=== PATIENT | female | born 2005 | race Caucasian/White ===

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

== ENCOUNTER 2024-01-10 17:22 | Emergency (ER) | payer BC, MEDICAID, SELFPAY ==
[2024-01-10 17:34] VITALS: BP 104/68; PULSE 103; RESP 14; TEMP 36.7; O2SAT 98
--- NOTE | 2024-01-10 17:45 | ECG_ITS ---
[facility] Test Date: 2024-01-10 Pat Name: Thuy Bashir Department: Room: Gender: Female Mud Analysis Supervisor: : 2005 Requested By: Keny Knight Order Number: [id number] Amy MD: Stephanie Fisher M.D. Measurements Intervals [place] Rate: 88 P: 58 [place]: 157 QRS: 76 QRSD: 86 T: 50 QT: 369 QTc: 447 Interpretive Statements SINUS RHYTHM WITH SINUS ARRHYTHMIA MINIMAL ST DEPRESSION [0.025+ mV ST DEPRESSION] Compared to ECG 07/11/2023 01:31:15 ST (T wave) deviation now present Electronically Signed On 01-11-2024 0:58:54 CDT by Stephanie Fisher M.D. [email or web address]
--- NOTE | 2024-01-10 17:49 | ED_ITS ---
Documented by User: Keny Burger DO 01/10/24 18:05 HPI - Dizziness 2 General: Chief Complaint: Dizziness Stated Complaint: dizzy,blacks out Time Seen by Provider: 01/10/24 17:44 History of Present Illness: HPI Narrative: 17-year-old female presents to the [facility] ency room with complaints of near syncopal episodes. Usually associated with postural changes. She also complains some vague chest and abdominal pain she denies any dysuria urgency or frequency denies any diarrhea. She has problems urinary continence associated with her previous pregnancies. States that she will get lightheaded and dizzy when she first stands she will sometimes get some blurring of her vision gets better after a few seconds but the dizziness will persist especially if she walks for a time afterwards. Patient reports this is going on for several months. She has been seen for it previously with no significant findings. Associated symptoms: Denies chest pain or chills Review of Systems 2 Const: Denies: fever(s) or chills Card: Denies: chest pain Resp: Denies: dyspnea GI: Denies: abdominal pain : Denies: dysuria, urinary frequency or urinary urgency Musc: Denies: neck pain or back pain Skin/Breast: Denies: rash PFSH ED 2 PFSH: Medical History (Updated 01/10/24 @ 20:48 by Mukesh Marte DO) Urinary urgency Urinary incontinence in female Surgical History History of tonsillectomy (~2016) Family History Grandfather CAD (coronary artery disease) Maternal Grandfather Diabetes Maternal garndfather Hypertension Maternal Grandfather Denies family history of Hyperlipidemia Cancer Stroke Social History Smoking and tobacco/nicotine status: never used tobacco/nicotine Alcohol intake: never Substance/Drug Use: unknown Adopted: No Physical Exam 2 Const: COMMON NORMALS: no acute distress GENERAL APPEARANCE: cooperative and comfortable ORIENTATION/CONSCIOUSNESS: Yes awake, Yes oriented to person, Yes oriented to place and Yes oriented to time HENMT: COMMON NORMALS: normocephalic, atraumatic and hearing grossly normal bilaterally HEAD & SCALP: normocephalic and atraumatic Resp: COMMON NORMALS: normal respiratory effort, No retractions, No use of accessory muscles and clear to auscultation bilaterally AUSCULTATION: clear to auscultation bilaterally Cardio: COMMON NORMALS: regular rate, regular rhythm and No murmurs present (Cardio) RATE: regular rate RHYTHM: regular rhythm GI: COMMON NORMALS: Soft to palpation and No hepatosplenomegaly present A USCULTATION: Yes normoactive bowel sounds PALPATION: Yes Soft to palpation, No Tenderness to palpation present (GI), No Guarding due to palpation present (GI) and Yes No hepatosplenomegaly present Extremity: COMMON NORMALS: normal to inspection, capillary refill normal, no clubbing, cyanosis or edema, no calf tenderness and no pedal edema Neuro: SENSORIUM/ORIENTATION: Yes oriented to person, Yes oriented to place and Yes oriented to time Skin: COMMON NORMALS: no rashes or lesions noted GENERAL SKIN EXAM: no rashes or lesions noted Course 2 Vital Signs: Vital signs: Vital Signs Temperature 98.1 F 01/10/24 17:34 Pulse Rate 83 01/10/24 20:22 Respiratory Rate 14 01/10/24 17:34 Blood Pressure 128/76 01/10/24 20:22 Pulse Oximetry 99 01/10/24 20:22 Oxygen Delivery Me thod Room Air 01/10/24 18:49 MDM - Dizziness Medical Decision Making Care signed out to Dr. Marte at change of shift. See final notes for diagnosis and disposition. Lab Data 01/10/24 18:00 01/10/24 18:00 Laboratory Results WBC 5.73 10^3/uL (4.5-13.0) 01/10/24 18:00 RBC 4.80 10^6/uL (3.85-5.65) 01/10/24 18:00 Hgb 13.30 g/dL (12.4-14.8) 01/10/24 18:00 Hct 40.0 % (36-47) 01/10/24 18:00 MCV 83.3 fl (85-98) L 01/10/24 18:00 MCH 27.7 pg (27-33) 01/10/24 18:00 MCHC 33.3 g/dL (30-55) 01/10/24 18:00 RDW 12.4 % (12.1-15.1) 01/10/24 18:00 Plt Count 187 10^3/cmm (157-399) 01/10/24 18:00 MPV 10.2 fL (7.4-10.4) 01/10/24 18:00 Neut % (Auto) 64.6 % 01/10/24 18:00 Lymph % (Auto) 25.0 % 01/10/24 18:00 Emmons % (Auto) 6.5 % 01/10/24 18:00 Eos % (Auto) 2.8 % 01/10/24 18:00 Baso % (Auto) 0.9 % 01/10/24 18:00 Neut # (Auto) 3.71 10^3/uL (1.8-8.0) 01/10/24 18:00 Lymph # (Auto) 1.4 10^3/uL (1.5-6.5) L 01/10/24 18:00 Emmons # (Auto) 0.4 10^3/uL (0.2-0.9) 01/10/24 18:00 Eos # (Auto) 0.2 10^3/uL (0.0-0.8) 01/10/24 18:00 Baso # (Auto) 0.1 10^3/uL (0.0-0.1) 01/10/24 18:00 Nucleated RBC % (auto) 0 % 01/10/24 18:00 Nucleated RBCs # 0.0 /100WBC 01/10/24 18:00 Sodium 141 mmol/L (136-145) 01/10/24 18:00 Potassium 3.5 mmol/L (3.5-5.1) 01/10/24 18:00 Chloride 106 mmol/L (98-107) 01/10/24 18:00 Carbon Dioxide 24 mmol/L (22-29) 01/10/24 18:00 Anion Gap 14.5 (5-19) 01/10/24 18:00 BUN 12 mg/dL (6-20) 01/10/24 18:00 Creatinine 0.8 mg/dL (0.5-0.9) 01/10/24 18:00 GFR Calculation 92.4 mL/min (90-130) 01/10/24 18:00 Glucose 137 mg/dL (65-115) H 01/10/24 18:00 Calculated Osmolality 294 mOsm/kg (285-295) 01/10/24 18:00 Calcium 8.7 mg/dL (8.5-10.5) 01/10/24 18:00 Magnesium 2.0 mg/dL (1.7-2.2) 01/10/24 18:00 Total Bilirubin 0.6 mg/dL (0.15-1.2) 01/10/24 18:00 AST 13 U/L (0-32) 01/10/24 18:00 ALT 7 U/L (0-33) 01/10/24 18:00 Alkaline Phosphatase 57 U/L (35-105) 01/10/24 18:00 Creatine Kinase 85 U/L (26-192) 01/10/24 18:00 Total Protein 7.0 g/dL (6.6-8.7) 01/10/24 18:00 Albumin 4.4 g/dL (3.5-5.2) 01/10/24 18:00 Globulin 2.6 g/dL (1.3-4.6) 01/10/24 18:00 TSH 2.81 uIU/mL (0.27-4.20) 01/10/24 18:00 Urine Color Yellow (Yellow) 01/10/24 17:50 Urine Appearance Clear (CLEAR) 01/10/24 17:50 Urine pH 5 (5-7) 01/10/24 17:50 Ur Specific [place] 1.030 (1.005-1.030) 01/10/24 17:50 Urine Protein Trace (Negative) 01/10/24 17:50 Urine Glucose (UA) Norm (Normal) 01/10/24 17:50 Urine Ketones 3+ (Negative) H 01/10/24 17:50 Urine Blood Neg (Negative) 01/10/24 17:50 Urine Nitrate Negative (Negative) 01/10/24 17:50 Urine Bilirubin Neg (Negative) 01/10/24 17:50 Urine Urobilinogen 1 mg/dL (Negative) H 01/10/24 17:50 Ur Leukocyte Esterase Negative (Negative) 01/10/24 17:50 Urine RBC None /hpf (0-2) 01/10/24 17:50 Urine WBC 0-4 /hpf (0-5) H 01/10/24 17:50 Ur Squamous Epith Cells 5-10 /hpf (0-5) H 01/10/24 17:50 Amorphous Sediment Not Reportable 01/10/24 17:50 Urine Bacteria 1+ /hpf (NONE) H 01/10/24 17:50 Urine Mucus 3+ /hpf 01/10/24 17:50 XR interpretation done by ED provider, pending radiology final review Discharge Plan Discharge Patient Disposition: Home Clinical Impression: Syncope Qualifiers: Syncope type: unspecified Qualified Code(s): R55 - Syncope and collapse Condition: Stable Prescriptions: No Action ibuprofen 800 mg Tablet 800 mg PO TID Qty: 45 0RF -U 106.5-1 mg Capsule 1 cap PO BREAKFAST Qty: 90 2RF Discharge Orders: Discharge ED (Routine); Ordered 01/10/24 Ordered By: Mukesh Marte Patient Instructions: Syncope, Dizziness (ED) Activity Restrictions/Additional Instructions: Thank you for choosing [facility] for your healthcare needs today. Please realize that you were seen in the emergency department and that we are providing you with an emergency medical screening exam and this may not be a complete and all exclusive of all testing and/or medical workup we may need to determine your element or severity of your illness. It is very important that you follow-up as instructed with your primary care provider or specialist for the additional evaluation and to discuss your medical treatment plan. You may return to the emergency department should you have concerns or if your condition changes or worsens in any way. Coding Level of Care Code ED Gymnasium Teacher for Chg Fwd Documented by User: Mukesh Marte DO 01/10/24 20:53 HPI - Dizziness 2 General: Chief Complaint: Dizziness Stated Complaint: dizzy,blacks out Time Seen by Provider: 01/10/24 17:44 PFSH ED 2 PFSH: Medical History (Updated 01/10/24 @ 20:48 by Mukesh Marte DO) Urinary urgency Urinary incontinence in female Surgical History History of tonsillectomy (~2016) Family History Grandfather CAD (coronary artery disease) Maternal Grandfather Diabetes Maternal garndfather Hypertension Maternal Grandfather Denies family history of Hyperlipidemia Cancer Stroke Social History Smoking and tobacco/nicotine status: never used tobacco/nicotine Alcohol intake: never Substance/Drug Use: unknown Adopted: No Course 2 Vital Signs: Vital signs: Vital Signs Temperature 98.1 F 01/10/24 17:34 Pulse Rate 83 01/10/24 20:22 Respiratory Rate 14 01/10/24 17:34 Blood Pressure 128/76 01/10/24 20:22 Pulse Oximetry 99 01/10/24 20:22 Oxygen Delivery Me thod Room Air 01/10/24 18:49 MDM - Dizziness Medical Decision Making Care signed out to Dr. Marte at change of shift. See final notes for diagnosis and disposition. Care transferred over to myself at shift change, lab work was reviewed, discussed these results with the patient. We will bolus her another liter of fluid. Anticipate discharge when fluids done. Suggested patient follow back up with PCP to potentially get referred to a dietitian, psychologist, we had a long talk with mother about eating disorders and suggested that she get outpatient follow-up. Lab Data 01/10/24 18:00 01/10/24 18:00 Laboratory Results WBC 5.73 10^3/uL (4.5-13.0) 01/10/24 18:00 RBC 4.80 10^6/uL (3.85-5.65) 01/10/24 18:00 Hgb 13.30 g/dL (12.4-14.8) 01/10/24 18:00 Hct 40.0 % (36-47) 01/10/24 18:00 MCV 83.3 fl (85-98) L 01/10/24 18:00 MCH 27.7 pg (27-33) 01/10/24 18:00 MCHC 33.3 g/dL (30-55) 01/10/24 18:00 RDW 12.4 % (12.1-15.1) 01/10/24 18:00 Plt Count 187 10^3/cmm (157-399) 01/10/24 18:00 MPV 10.2 fL (7.4-10.4) 01/10/24 18:00 Neut % (Auto) 64.6 % 01/10/24 18:00 Lymph % (Auto) 25.0 % 01/10/24 18:00 Emmons % (Auto) 6.5 % 01/10/24 18:00 Eos % (Auto) 2.8 % 01/10/24 18:00 Baso % (Auto) 0.9 % 01/10/24 18:00 Neut # (Auto) 3.71 10^3/uL (1.8-8.0) 01/10/24 18:00 Lymph # (Auto) 1.4 10^3/uL (1.5-6.5) L 01/10/24 18:00 Emmons # (Auto) 0.4 10^3/uL (0.2-0.9) 01/10/24 18:00 Eos # (Auto) 0.2 10^3/uL (0.0-0.8) 01/10/24 18:00 Baso # (Auto) 0.1 10^3/uL (0.0-0.1) 01/10/24 18:00 Nucleated RBC % (auto) 0 % 01/10/24 18:00 Nucleated RBCs # 0.0 /100WBC 01/10/24 18:00 Sodium 141 mmol/L (136-145) 01/10/24 18:00 Potassium 3.5 mmol/L (3.5-5.1) 01/10/24 18:00 Chloride 106 mmol/L (98-107) 01/10/24 18:00 Carbon Dioxide 24 mmol/L (22-29) 01/10/24 18:00 Anion Gap 14.5 (5-19) 01/10/24 18:00 BUN 12 mg/dL (6-20) 01/10/24 18:00 Creatinine 0.8 mg/dL (0.5-0.9) 01/10/24 18:00 GFR Calculation 92.4 mL/min (90-130) 01/10/24 18:00 Glucose 137 mg/dL (65-115) H 01/10/24 18:00 Calculated Osmolality 294 mOsm/kg (285-295) 01/10/24 18:00 Calcium 8.7 mg/dL (8.5-10.5) 01/10/24 18:00 Magnesium 2.0 mg/dL (1.7-2.2) 01/10/24 18:00 Total Bilirubin 0.6 mg/dL (0.15-1.2) 01/10/24 18:00 AST 13 U/L (0-32) 01/10/24 18:00 ALT 7 U/L (0-33) 01/10/24 18:00 Alkaline Phosphatase 57 U/L (35-105) 01/10/24 18:00 Creatine Kinase 85 U/L (26-192) 01/10/24 18:00 Total Protein 7.0 g/dL (6.6-8.7) 01/10/24 18:00 Albumin 4.4 g/dL (3.5-5.2) 01/10/24 18:00 Globulin 2.6 g/dL (1.3-4.6) 01/10/24 18:00 TSH 2.81 uIU/mL (0.27-4.20) 01/10/24 18:00 Urine Color Yellow (Yellow) 01/10/24 17:50 Urine Appearance Clear (CLEAR) 01/10/24 17:50 Urine pH 5 (5-7) 01/10/24 17:50 Ur Specific [place] 1.030 (1.005-1.030) 01/10/24 17:50 Urine Protein Trace (Negative) 01/10/24 17:50 Urine Glucose (UA) Norm (Normal) 01/10/24 17:50 Urine Ketones 3+ (Negative) H 01/10/24 17:50 Urine Blood Neg (Negative) 01/10/24 17:50 Urine Nitrate Negative (Negative) 01/10/24 17:50 Urine Bilirubin Neg (Negative) 01/10/24 17:50 Urine Urobilinogen 1 mg/dL (Negative) H 01/10/24 17:50 Ur Leukocyte Esterase Negative (Negative) 01/10/24 17:50 Urine RBC None /hpf (0-2) 01/10/24 17:50 Urine WBC 0-4 /hpf (0-5) H 01/10/24 17:50 Ur Squamous Epith Cells 5-10 /hpf (0-5) H 01/10/24 17:50 Amorphous Sediment Not Reportable 01/10/24 17:50 Urine Bacteria 1+ /hpf (NONE) H 01/10/24 17:50 Urine Mucus 3+ /hpf 01/10/24 17:50 Discharge Plan Discharge Patient Disposition: Home Clinical Impression: Syncope Qualifiers: Syncope type: unspecified Qualified Code(s): R55 - Syncope and collapse Condition: Stable Prescriptions: No Action ibuprofen 800 mg Tablet 800 mg PO TID Qty: 45 0RF -U 106.5-1 mg Capsule 1 cap PO BREAKFAST Qty: 90 2RF Discharge Orders: Discharge ED (Routine); Ordered 01/10/24 Ordered By: Mukesh Marte Patient Instructions: Syncope, Dizziness (ED) Activity Restrictions/Additional Instructions: Thank you for choosing [facility] for your healthcare needs today. Please realize that you were seen in the emergency department and that we are providing you with an emergency medical screening exam and this may not be a complete and all exclusive of all testing and/or medical workup we may need to determine your element or severity of your illness. It is very important that you follow-up as instructed with your primary care provider or specialist for the additional evaluation and to discuss your medical treatment plan. You may return to the emergency department should you have concerns or if your condition changes or worsens in any way. Coding Level of Care Code ED Gymnasium Teacher for Beryl Pineda
[2024-01-10 18:05] LABS: Basophils # 0.1 10^3/uL (0.0-0.1); Basophils % 0.9 %; Eosinophils # 0.2 10^3/uL (0.0-0.8); Eosinophils % 2.8 %; Lymphocytes # 1.4 10^3/uL (1.5-6.5); Mean Corpuscular HGB Conc 33.3 g/dL (30-55); Mean Corpuscular Hemoglobin 27.7 pg (27-33); Mean Corpuscular Volume 83.3 fl (85-98); Mean Platelet Volume 10.2 fL (7.4-10.4); Monocytes # 0.4 10^3/uL (0.2-0.9); Monocytes % 6.5 %; Neutrophils # 3.71 10^3/uL (1.8-8.0); Neutrophils % 64.6 %; Nucleated Red Blood Cells % 0 %; Platelet Count 187 10^3/cmm (157-399); Red Cell Distribution Width 12.4 % (12.1-15.1); White Blood Count 5.73 10^3/uL (4.5-13.0)
[2024-01-10 18:10] VITALS: BP 107/72; BP 123/81; BP 127/67; PULSE 116; PULSE 137; PULSE 98
[2024-01-10 18:13] VITALS: BP 123/85
[2024-01-10 18:25] LABS: Alanine Aminotransferase 7 U/L (0-33); Albumin Level 4.4 g/dL (3.5-5.2); Alkaline Phosphatase 57 U/L (35-105); Anion Gap 14.5 (5-19); Aspartate Amino Transferase 13 U/L (0-32); Blood Urea Nitrogen 12 mg/dL (6-20); Calcium 8.7 mg/dL (8.5-10.5); Carbon Dioxide 24 mmol/L (22-29); Chloride 106 mmol/L (98-107); Creatinine Clr Calc Pharmacy 84.2556; Globulin 2.6 g/dL (1.3-4.6); Glomerular Filtration Rate 92.4 mL/min (90-130); Glucose 137 mg/dL (65-115); Osmolality Calculated 294 mOsm/kg (285-295); Potassium 3.5 mmol/L (3.5-5.1); Sodium 141 mmol/L (136-145); Total Bilirubin 0.6 mg/dL (0.15-1.2)
[2024-01-10 18:26] LABS: Bilirubin Urine Neg (Negative); Blood Urine Neg (Negative); Glucose Urine UA Norm (Normal); Ketones Urine 3+ (Negative); Leukocyte Esterase Urine Negative (Negative); Nitrate Urine Negative (Negative); Protein Urine Trace (Negative); Urine Appearance Clear (CLEAR); Urine Color Yellow (Yellow); Urobilinogen Urine 1 mg/dL (Negative); pH Urine 5 (5-7)
[2024-01-10 18:27] LABS: Add Urine Microscopic? YES; Bacteria Urine 1+ /hpf; Mucus Urine 3+ /hpf; WBC Urine 0-4 /hpf (0-5)
[2024-01-10 18:32] LABS: Add Urine Culture? No
[2024-01-10] MEDS: sodium chloride 0.9% 1,000 ML 999 ML IV ×2 (18:33→20:20)
--- NOTE | 2024-01-10 18:40 | PC.NURSE ---
Assumed care from Amalia LUI at shift change.
[2024-01-10 18:49] VITALS: BP 106/77; PULSE 77; O2SAT 100
[2024-01-10 20:22] VITALS: BP 128/76; PULSE 83; O2SAT 99
[2024-01-10 20:50] LABS: Creatine Phosphokinase 85 U/L (26-192); Prealbumin 13.8 mg/dL (20-40); Thyroid Stimulating Hormone 2.81 uIU/mL (0.27-4.20)
== END 2024-01-10 21:37 | disposition home or self-care (01) ==
PROVIDERS: Emergency Medicine; Emergency Provider Family Medicine
DX: R55 Syncope and collapse (principal)
CPT/HCPCS: 36415; 80053; 81001; 82550; 83735; 84134; 84443; 85025; 93005; 96360; 96361; 99284; J7030

== ENCOUNTER 2024-06-25 17:32 | Emergency (ER) | payer BC, MEDICAID, SELFPAY ==
[2024-06-25 17:37] VITALS: BP 107/72; PULSE 75; RESP 14; TEMP 36.6; O2SAT 100
--- NOTE | 2024-06-25 19:15 | W.ED.BACK ---
HPI - Back Pain/Injury General: Chief Complaint: Back Pain/Injury Stated Complaint: pain down spine Time Seen by Provider: 06/25/24 17:45 Source: patient Mode of arrival: ambulatory Limitations: no limitations History of Present Illness: Patient is a 19-year-old female who presents to the emergency department complaining of atraumatic mid back pain. States that she has dealt with this for a long time and it has been intermittent. States at 1 point she did physical therapy for it, and saw Dr. Carvajal and was set to undergo MRI, but never had this done and the order timed out. Mom states that they tried to get back in, unable to schedule appointment on July so came here to the emergency department. Patient states that there is no recent trauma or potential inciting event. Patient reporting pain is mild, worse with movement and is to the thoracic spine and parathoracic muscles. Patient not reporting any bowel or bladder incontinence, or focal neurological deficits. Does not report any fevers, trauma, unexplained weight loss, neurological symptoms, IVDU, steroid use, or history of cancer. Patient has not taken any medications for the pain, states she does not like taking medications. MD elicited complaint: back pain Pertinent past history: prior back pain Severity: mild Location: thoracic spine Exacerbating factors: movement Associated symptoms: Deny abdominal pain, difficulty walking, fecal incontinence, fever(s) or syncope Treatments prior to arrival: other (No medications tried) Related Data Previous Rx's Medication Instructions Recorded ibuprofen 800 mg tablet 800 mg PO TID #45 tabs 01/30/23 multivitamin no.51-ferrous 1 cap PO BREAKFAST #90 caps 01/30/23 fumarate 106.5 mg-folic acid 1 mg capsule (-U) Allergies Allergy/AdvReac Type Severity Reaction Status Date / Time No Known Allergies Allergy Verified 06/25/24 17:43 Review of Systems General: Reports: 10 or more systems reviewed and unremarkable except in HPI and below Const: Reports: other (denies trauma); Denies: fever(s), change in weight or night sweats Card: Denies: chest pain, lightheadedness or syncope Resp: Denies: dyspnea GI: Denies: abdominal pain or fecal incontinence : Denies: urinary incontinence Musc: Reports: back pain; Denies: neck pain or extremity pain Skin/Breast: Denies: rash or skin pain Neuro: Denies: headache(s), numbness in extremities, weakness in extremities, sensory changes, lack of coordination, difficulty walking, frequent falls or involuntary movements PFSH ED PFSH: Medical History Urinary urgency Urinary incontinence in female Surgical History History of tonsillectomy (~2016) Family History Grandfather CAD (coronary artery disease) Maternal Grandfather Diabetes Maternal garndfather Hypertension Maternal Grandfather Denies family history of Hyperlipidemia Cancer Stroke Social History Smoking and tobacco/nicotine status: never used tobacco/nicotine Alcohol intake: never Substance/Drug Use: unknown Adopted: No Female Reproductive History: Date of last menstrual period: 06/10/24 Physical Exam Const: COMMON NORMALS: no acute distress, patient oriented x3, no limitations, healthy appearing and alert Resp: COMMON NORMALS: normal respiratory effort, No retractions, No use of accessory muscles and clear to auscultation bilaterally AUSCULTATION: clear to auscultation bilaterally Cardio: COMMON NORMALS: regular rate, regular rhythm, S1 normal heart sound present and S2 normal heart sound present RATE: regular rate RHYTHM: regular rhythm HEART SOUNDS: S1 normal heart sound present and S2 normal heart sound present Back/Pelvis: OTHER: Normal visual examination. Reproducible tenderness to palpation to the thoracic spinous process, no cervical or lumbar tenderness. Mild parathoracic muscle tenderness to palpation.. Full active range of motion. Unremarkable forward bending exam. Gait appears normal. Extremity: COMMON NORMALS: normal to inspection and full ROM Neuro: COMMON NORMALS: patient oriented x3, moves all extremities, no focal motor deficits, no sensory deficits noted, deep tendon reflexes 2+ bilaterally and gait normal SENSORIUM/ORIENTATION: Yes alert OTHER: L3, L4, L5, and S1 nerve sensations intact. Normal knee jerk and ankle jerk reflexes. Skin: COMMON NORMALS: no rashes or lesions noted GENERAL SKIN EXAM: no rashes or lesions noted Course Vital Signs: Vital signs: Vital Signs Temperature 97.9 F 06/25/24 17:37 Pulse Rate 75 06/25/24 17:37 Respiratory Rate 14 06/25/24 17:37 Blood Pressure 107/72 06/25/24 17:37 Pulse Oximetry 100 06/25/24 17:37 Oxygen Delivery Me thod Room Air 06/25/24 17:37 MDM - Back Pain/Injury Medical Decision Making Patient has been dealing with back pain for years, specifically worsened this morning there is no recent trauma. No single red flag back symptoms reported and physical exam was completely normal. Being that patient has not tried any medications, gave a shot of Toradol here as well as p.o. Decadron and encouraged her to begin taking NSAIDs for any onset of pain as I feel this to be musculoskeletal. She had no concerning historical or physical elements to make me pursue lab work or imaging at this time. Being that she has seen Dr. Carvajal before, placed another referral so that she can follow-up and obtain MRI if her pain continues to persist. Also encouraged her to return with any concerning symptoms related to back pain, her and mom endorsed understanding and are comfortable with discharge at this time. No radiology studies performed this visit Discharge Plan Discharge Patient Disposition: Home Clinical Impression: Musculoskeletal back pain Condition: Stable Prescriptions: No Action ibuprofen 800 mg Tablet 800 mg PO TID Qty: 45 0RF -U 106.5-1 mg Capsule 1 cap PO BREAKFAST Qty: 90 2RF Discharge Orders: Discharge ED (Routine); Ordered 06/25/24 Ordered By: Miguel Stephenson Patient Instructions: Back Pain (ED) Activity Restrictions/Additional Instructions: Follow-up with Ortho/spine as we discussed, await call to set up an appointment. Please start taking ibuprofen for any recurrence of back pain, and ice/heat for added relief. Range of motion exercises as tolerated. If you develop any fevers, bowel or bladder incontinence, focal neurological deficit, or other concerning symptoms please return as we discussed as well. Coding Level of Care Code ED [employer] Co[employer] Machine for Beryl Pineda
[2024-06-25] MEDS: ketorolac 60 mg/2 mL INJ IM (19:24)
[2024-06-25] MEDS: dexamethasone 10 mg/mL INJ 8 MG PO (19:28)
[2024-06-25 19:50] VITALS: BP 104/72; PULSE 86; O2SAT 96
--- NOTE | 2024-06-26 07:31 | DCPLANNER ---
messaged ortho for er f/u
== END 2024-06-25 19:52 | disposition home or self-care (01) ==
PROVIDERS: Emergency Provider Physician Assistant
DX: M54.9 Dorsalgia, unspecified (principal)
CPT/HCPCS: 96372; 99284; J1100; J1885

== ENCOUNTER 2024-07-01 14:25 | Outpatient (CLI) | payer BC, MEDICAID, SELFPAY ==
--- NOTE | 2024-07-01 14:30 | MR_ITS ---
WS: [id number] MRI LUMBAR SPINE NONCONTRAST HISTORY: M54.50 - Low back pain, unspecified COMPARISON: 08/31/2016 TECHNIQUE: Sagittal and axial multisequence imaging is submitted. Normal lumbar alignment with no compression fractures or marrow edema. Disc spaces and vertebral body heights are well-preserved. Conus terminates normally at L1-2 disc level. L1-L2: Normal. L2-L3: Normal. L3-L4: Broad-based disc bulging. No stenosis. L4-L5: Broad-based disc bulging with slight effacement upon the ventral thecal sac. No stenosis. L5-S1: Tiny central disc protrusion. Mild facet arthritis. No stenosis. Minimal narrowing of the LEFT foramen. Similar to the prior study. Small amount of free fluid in the cul-de-sac. MR/MR lumbar spine wo con* [id number] IMPRESSION: 1. No high-grade central or foraminal stenosis. No fractures or marrow edema. 2. Minimal narrowing of the LEFT foramen of L5-S1 as seen on the prior study.
== END 2024-07-01 14:26 | disposition home or self-care (01) ==
PROVIDERS: PCP Family Medicine; Visit Provider Orthopaedic Surgery
DX: M51.360 Other intervertebral disc degeneration, lumbar region with discogenic back pain only (principal); M47.816 Spondylosis without myelopathy or radiculopathy, lumbar region; R93.89 Abnormal findings on diagnostic imaging of other specified body structures
CPT/HCPCS: 72148

== ENCOUNTER → 2024-07-08 08:19 | Outpatient (BNVA) | payer BC, MEDICAID, SELFPAY | PROVIDERS: PCP Family Medicine; Visit Provider Orthopaedic Surgery | DX: M54.9 Dorsalgia, unspecified (principal) | CPT/HCPCS: 72110 ==

== ENCOUNTER 2024-08-14 13:06 | Outpatient (RCR) | payer BC, MEDICAID, SELFPAY | END 2024-08-15 23:59 | disposition home or self-care (01) | LOC: SPT 13:06 | PROVIDERS: Visit Provider Orthopaedic Surgery | DX: M54.9 Dorsalgia, unspecified (principal); M54.2 Cervicalgia; G89.29 Other chronic pain | CPT/HCPCS: 97161 ==

== ENCOUNTER 2024-08-16 06:00 | Outpatient (RCR) | payer BC, MEDICAID, SELFPAY | END 2024-09-10 13:48 | disposition home or self-care (01) | LOC: SPT 06:00 | PROVIDERS: Visit Provider Orthopaedic Surgery | DX: M54.9 Dorsalgia, unspecified (principal); M54.2 Cervicalgia; G89.29 Other chronic pain | CPT/HCPCS: 97110 ==

== ENCOUNTER 2024-09-05 23:10 | Emergency (ER) | payer BC, MEDICAID, SELFPAY ==
[2024-09-05 23:15] VITALS: BP 121/86; PULSE 99; RESP 18; TEMP 36.6; O2SAT 99; BMI 21.5
[2024-09-05 23:23] LABS: Glucose Point of Care 87 mg/dL (70-110)
--- NOTE | 2024-09-05 23:24 | ECG_ITS ---
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 Measurements Intervals [place] Rate: 98 P: 47 IN: 149 QRS: 55 QRSD: 84 T: 45 QT: 333 QTc: 426 Interpretive Statements SINUS RHYTHM Compared to ECG 01/10/2024 17:53:01 Sinus arrhythmia no longer present ST (T wave) deviation no longer present Electronically Signed On 09-06-2024 07:38:44 CDT by Raymond Schwartz M.D. [email or web address]
[2024-09-06] MEDS: sodium chloride 0.9% 1,000 ML 999 ML IV (00:09)
[2024-09-06 00:21] LABS: Bilirubin Urine Negative (Negative); Blood Urine Negative (Negative); Glucose Urine UA Negative (Normal); Ketones Urine Negative (Negative); Leukocyte Esterase Urine Negative (Negative); Nitrate Urine Negative (Negative); Protein Urine Negative (Negative); Urine Appearance Clear (CLEAR); Urine Color Yellow (Yellow); pH Urine 6.5 (5-7)
[2024-09-06 00:26] LABS: Add Urine Microscopic? YES; Bacteria Urine None Seen /hpf; Hyaline Casts Urine 0-4 /lpf; RBC Urine 0-2 /hpf (0-2); Squamous Epithelial Cell Urine 0-5 /hpf (0-5); WBC Urine 0-5 /hpf (0-5)
[2024-09-06 00:28] LABS: Amphetamines Screen Urine Negative (Negative); Barbiturates Screen Urine Negative (Negative); Benzodiazepines Screen Urine Negative (Negative); Cocaine Screen Urine Negative (Negative); Opiate Screen Urine Negative (Negative); PCP Screen Urine Negative (Negative); THC Screen Urine Negative (Negative)
[2024-09-06 00:29] LABS: HCG, Serum Qual Positive (Negative)
[2024-09-06 00:30] LABS: Basophils % 0.5 %; Eosinophils # 0.2 10^3/uL (0.0-0.8); Eosinophils % 2.3 %; Hematocrit 36.8 % (36-47); Lymphocytes # 2.2 10^3/uL (1.5-6.5); Lymphocytes % 26.8 %; Mean Corpuscular HGB Conc 32.3 g/dL (30-55); Mean Corpuscular Hemoglobin 27.2 pg (27-33); Mean Corpuscular Volume 84.2 fl (85-98); Mean Platelet Volume 10.2 fL (7.4-10.4); Monocytes # 0.5 10^3/uL (0.2-0.9); Monocytes % 5.7 %; Neutrophils # 5.29 10^3/uL (1.8-8.0); Neutrophils % 64.3 %; Nucleated Red Blood Cells % 0 %; Platelet Count 187 10^3/cmm (157-399); Red Blood Count 4.37 10^6/uL (3.85-5.65); Red Cell Distribution Width 13.6 % (12.1-15.1); White Blood Count 8.22 10^3/uL (4.5-13.0)
[2024-09-06 00:32] LABS: Alanine Aminotransferase 6 U/L (0-33); Albumin Level 4.1 g/dL (3.5-5.2); Alkaline Phosphatase 63 U/L (35-105); Anion Gap 12.7 (5-19); Aspartate Amino Transferase 15 U/L (0-32); Blood Urea Nitrogen 9 mg/dL (6-20); Calcium 8.5 mg/dL (8.5-10.5); Carbon Dioxide 22 mmol/L (22-29); Chloride 101 mmol/L (98-107); Creatinine Clr Calc Pharmacy 139.8647; Globulin 2.8 g/dL (1.3-4.6); Glomerular Filtration Rate 157.3 mL/min (90-130); Glucose 84 mg/dL (65-115); Magnesium 1.8 mg/dL (1.7-2.3); Osmolality Calculated 272 mOsm/kg (285-295); Potassium 3.7 mmol/L (3.5-5.1); Sodium 132 mmol/L (136-145); Total Bilirubin 0.2 mg/dL (0.15-1.2); Total Protein 6.9 g/dL (6.6-8.7)
[2024-09-06 00:55] LABS: Influenza A NEGATIVE (Negative); Influenza B NEGATIVE (Negative); Respiratory Syncytial Virus Ce NEGATIVE (Negative); SARS-CoV-2 PCR NEGATIVE (Negative)
[2024-09-06 01:35] VITALS: BP 104/59; PULSE 82; O2SAT 99
--- NOTE | 2024-09-06 02:26 | ED_ITS ---
HPI - General Adult 2 General: Chief complaint: General Medical Stated complaint: 11 wk preg CP dizzy shaky headache Time Seen by Provider: 09/05/24 23:51 Source: patient and family Mode of arrival: ambulatory Limitations: no limitations History of Present Illness: Patient planes of chest pain dizziness and cramping also some shortness of breath. Dizziness is more of a lightheadedness sensation. Not a vertiginous sensation. She is 11 weeks with her third . Patient is in no distress at time of assessment she reports that most of the symptoms have been going on for a long time. She is also having a headache but that is a chronic issue. The dizziness is also 1 has been going on for years. The chest pain and the cramping is more to the last few weeks to months. Comes in to get checked out. Related Data Previous Rx's ?Medication ?Instructions ?Recorded ibuprofen 800 mg tablet 800 mg PO TID #45 tabs 01/30 multivitamin no.51-ferrous 1 cap PO BREAKFAST #90 caps 01/30/23 fumarate 106.5 mg-folic acid 1 mg capsule (-U) Allergies Allergy/AdvReac Type Severity Reaction Status Date / Time No Known Allergies Allergy Verified 06/25/24 17:43 Review of Systems 2 General: Reports: 10 or more systems reviewed and unremarkable except in HPI and below PFSH ED 2 PFSH: Medical History Urinary urgency Urinary incontinence in female Surgical History History of tonsillectomy (~2016) Family History Grandfather CAD (coronary artery disease) Maternal Grandfather Diabetes Maternal garndfather Hypertension Maternal Grandfather Denies family history of Hyperlipidemia Cancer Stroke Social History Smoking and tobacco/nicotine status: unknown if used tobacco/nicotine Alcohol intake: never Substance/Drug Use: unknown Adopted: No Physical Exam 2 Const: COMMON NORMALS: no acute distress, average body habitus, patient oriented x3, healthy appearing, alert and well nourished GENERAL APPEARANCE: well kempt and well developed HENMT: COMMON NORMALS: normocephalic, atraumatic, external ears normal and moist oral mucous membranes HEAD & SCALP: normocephalic and atraumatic E XTERNAL EAR: Yes external ears normal Eye: COMMON NORMALS: Equal, round and reactive pupils present, EOMs intact bilaterally and conjunctivae normal CONJUNCTIVA: Yes conjunctivae normal P UPIL: Yes Equal, round and reactive pupils present Neck/C-Spine: COMMON NORMALS: full ROM, no lymphadenopathy and supple Chest: CHEST: Yes Symmetrical chest wall rise and No Surgical scars present (Chest) Resp: COMMON NORMALS: normal respiratory effort, No retractions, No use of accessory muscles and clear to auscultation bilaterally AUSCULTATION: clear to auscultation bilaterally Cardio: COMMON NORMALS: regular rate, regular rhythm, S1 normal heart sound present, S2 normal heart sound present, No gallops present (Cardio), No clicks present (Cardio), No murmurs present (Cardio) and No rub (Cardio) RATE: r egular rate RHYTHM: regular rhythm HEART SOUNDS: S1 normal heart sound present, S2 normal heart sound present and no murmurs PERIPHERAL PULSES: o ther (Radial pulses 2+ and symmetric) GI: COMMON NORMALS: Soft to palpation, non-tender and no masses INSPECTION: No abdominal distension PALPATION: Yes Soft to palpation, No Guarding due to palpation present (GI) and No Rebound tenderness present Extremity: COMMON NORMALS: normal to inspection, full ROM, capillary refill normal and no clubbing, cyanosis or edema Neuro: COMMON NORMALS: patient oriented x3 SENSORIUM/ORIENTATION: Yes alert Psych: APPEARANCE: Yes well kempt Skin: COMMON NORMALS: no rashes or lesions noted, no wounds, turgor normal and no jaundice GENERAL SKIN EXAM: no rashes or lesions noted and turgor normal Course 2 Vital Signs: Vital signs: Vital Signs Temperature 97.8 F 09/05/24 23:15 Pulse Rate 92 09/06/24 03:24 Respiratory Rate 18 09/05/24 23:15 Blood Pressure 104/62 09/06/24 03:24 Pulse Oximetry 98 09/06/24 03:24 Oxygen Delivery Me thod Room Air 09/05/24 23:15 MDM - General Adult Medical Decision Making Patient found to be slightly dehydrated with hyaline casts in the urine. CBC has mild change in the hemoglobin suggestive of anemia of . Still mostly within normal limits for female. CMP also is showing signs of mild dehydration. Given a liter of fluids patient reported feeling much improved. heart tones obtained with ultrasound of 172. Patient will be discharged home. Medical Records I reviewed the patient's medical records. Lab Data I reviewed the patient's lab results. 09/06/24 00:00 09/06/24 00:00 Laboratory Results WBC 8.22 10^3/uL (4.5-13.0) 09/06/24 00:00 RBC 4.37 10^6/uL (3.85-5.65) 09/06/24 00:00 Hgb 11.90 g/dL (12.4-14.8) L 09/06/24 00:00 Hct 36.8 % (36-47) 09/06/24 00:00 MCV 84.2 fl (85-98) L 09/06/24 00:00 MCH 27.2 pg (27-33) 09/06/24 00:00 MCHC 32.3 g/dL (30-55) 09/06/24 00:00 RDW 13.6 % (12.1-15.1) 09/06/24 00:00 Plt Count 187 10^3/cmm (157-399) 09/06/24 00:00 MPV 10.2 fL (7.4-10.4) 09/06/24 00:00 Neut % (Auto) 64.3 % 09/06/24 00:00 Lymph % (Auto) 26.8 % 09/06/24 00:00 [place] % (Auto) 5.7 % 09/06/24 00:00 Eos % (Auto) 2.3 % 09/06/24 00:00 Baso % (Auto) 0.5 % 09/06/24 00:00 Neut # (Auto) 5.29 10^3/uL (1.8-8.0) 09/06/24 00:00 Lymph # (Auto) 2.2 10^3/uL (1.5-6.5) 09/06/24 00:00 [place] # (Auto) 0.5 10^3/uL (0.2-0.9) 09/06/24 00:00 Eos # (Auto) 0.2 10^3/uL (0.0-0.8) 09/06/24 00:00 Baso # (Auto) 0.0 10^3/uL (0.0-0.1) 09/06/24 00:00 Nucleated RBC % (auto) 0 % 09/06/24 00:00 Nucleated RBCs # 0.0 /100WBC 09/06/24 00:00 Sodium 132 mmol/L (136-145) L 09/06/24 00:00 Potassium 3.7 mmol/L (3.5-5.1) 09/06/24 00:00 Chloride 101 mmol/L (98-107) 09/06/24 00:00 Carbon Dioxide 22 mmol/L (22-29) 09/06/24 00:00 Anion Gap 12.7 (5-19) 09/06/24 00:00 BUN 9 mg/dL (6-20) 09/06/24 00:00 Creatinine 0.5 mg/dL (0.5-0.9) 09/06/24 00:00 GFR Calculation 157.3 mL/min (90-130) H 09/06/24 00:00 Glucose 84 mg/dL (65-115) 09/06/24 00:00 POC Glucose 87 mg/dL (70-110) 09/05/24 23:19 Calculated Osmolality 272 mOsm/kg (285-295) L 09/06/24 00:00 Calcium 8.5 mg/dL (8.5-10.5) 09/06/24 00:00 Magnesium 1.8 mg/dL (1.7-2.3) 09/06/24 00:00 Total Bilirubin 0.2 mg/dL (0.15-1.2) 09/06/24 00:00 AST 15 U/L (0-32) 09/06/24 00:00 ALT 6 U/L (0-33) 09/06/24 00:00 Alkaline Phosphatase 63 U/L (35-105) 09/06/24 00:00 Total Protein 6.9 g/dL (6.6-8.7) 09/06/24 00:00 Albumin 4.1 g/dL (3.5-5.2) 09/06/24 00:00 Globulin 2.8 g/dL (1.3-4.6) 09/06/24 00:00 HCG, Qual Positive (Negative) H 09/06/24 00:00 Urine Color Yellow (Yellow) 09/06/24 00:11 Urine Appearance Clear (CLEAR) 09/06/24 00:11 Urine pH 6.5 (5-7) 09/06/24 00:11 Ur Specific [place] 1.020 (1.005-1.030) 09/06/24 00:11 Urine Protein Negative (Negative) 09/06/24 00:11 Urine Glucose (UA) Negative (Normal) 09/06/24 00:11 Urine Ketones Negative (Negative) 09/06/24 00:11 Urine Blood Negative (Negative) 09/06/24 00:11 Urine Nitrate Negative (Negative) 09/06/24 00:11 Urine Bilirubin Negative (Negative) 09/06/24 00:11 Urine Urobilinogen 1.0 mg/dL (Negative) 09/06/24 00:11 Ur Leukocyte Esterase Negative (Negative) 09/06/24 00:11 Urine RBC 0-2 /hpf (0-2) 09/06/24 00:11 Urine WBC 0-5 /hpf (0-5) 09/06/24 00:11 Ur Squamous Epith Cells 0-5 /hpf (0-5) 09/06/24 00:11 Amorphous Sediment Not Reportable 09/06/24 00:11 Urine Bacteria None seen /hpf (NONE) 09/06/24 00:11 Hyaline Casts 0-4 /lpf H 09/06/24 00:11 Urine Opiates Screen Negative ng/mL (Negative) 09/06/24 00:11 Ur Barbiturates Screen Negative ng/mL (Negative) 09/06/24 00:11 Ur Phencyclidine Scrn Negative ng/mL (Negative) 09/06/24 00:11 Ur Amphetamines Screen Negative ng/mL (Negative) 09/06/24 00:11 U Benzodiazepines Scrn Negative ng/mL (Negative) 09/06/24 00:11 Urine Cocaine Screen Negative ng/mL (Negative) 09/06/24 00:11 U Marijuana (THC) Screen Negative ng/mL (Negative) 09/06/24 00:11 Influenza A (PCR) Negative (Negative) 09/06/24 00:11 Influenza Type B (PCR) Negative (Negative) 09/06/24 00:11 RSV (PCR) Negative (Negative) 09/06/24 00:11 SARS-CoV-2 (PCR) Negative (Negative) 09/06/24 00:11 No radiology studies performed this visit EKG Data EKG 1: I personally reviewed and interpreted this EKG as follows: EKG interpretation date: 09/05/24 EKG interpretation time: 23:47 Prior EKG tracings: not available for review Interpretation: Normal axis, sinus rhythm, rate of 98, no ST elevations QTc within normal limits. 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
[2024-09-06 03:24] VITALS: BP 104/62; PULSE 92; O2SAT 98
== END 2024-09-06 03:15 | disposition home or self-care (01) ==
PROVIDERS: Emergency Provider Emergency Medicine; PCP Family Medicine
DX: O26.891 Other specified pregnancy related conditions, first trimester (principal); Z3A.11 11 weeks gestation of pregnancy; E86.0 Dehydration
CPT/HCPCS: 36415; 36416; 80053; 80306; 81001; 82962; 83735; 84703; 85025; 87637; 93005; 96360; 96361; 99284; J7030

== ENCOUNTER 2024-10-08 21:08 | Emergency (ER) | payer BC, MEDICAID, SELFPAY ==
[2024-10-08 21:18] VITALS: BP 109/71; PULSE 88; RESP 17; TEMP 36.6; O2SAT 99; BMI 21.7
--- NOTE | 2024-10-08 21:37 | USR_ITS ---
PROCEDURE INFORMATION: Exam: US After First Trimester, Transabdominal Exam date and time: 10/08/2024 9:56 PM Age: 19 years old Clinical indication: Lmp or gestational age (in weeks): 17w 1 d by lmp; Antepartum complications; Bleeding; ; Prior surgery; Surgery date: 6+ months; Surgery type: Csect x 2; Additional info: Abdominal pain, vaginal bleeding LABS AND CLINICAL REPORTS: Last menstrual period start date: 06/10/2024 Gestational age (Established): 17 w 1 d Estimated due date (Established): 03/17/2025 TECHNIQUE: Imaging protocol: Real-time transabdominal obstetrical ultrasound of the maternal pelvis and a second or third trimester with image documentation. COMPARISON: No relevant prior studies available. FINDINGS: Single living fetus in cephalic position. Anterior placenta. No visible placental placenta previa. There is a hypoechoic area at the inferior margin of the anterior placenta, measuring 39 x 15 mm. This likely represents a subchorionic hematoma. On the provided images, this does not appear to extend significantly beneath the posterior margin of the placenta at this time. No significant retroplacental fluid collection. Appropriate follow-up will be useful, as clinically directed. Amniotic fluid volume within normal limits, NEELAM 11.3 cm. Cervical length was estimated with transabdominal scanning, measuring approximately 3.9 cm. No definite cervical canal dilation or fluid on the provided images. BPD: , 3.9 cm. , 17 weeks, 6 days HC: , 13.6 cm. , 17 weeks, 0 days AC: , 11.2 cm. , 17 weeks, 0 days FL: , 2.5 cm. , 17 weeks, 3 days Composite age: 17 weeks, 2 days. (TIAGO: 03/16/2025) Estimated weight: 187 grams, (0 lb 7 oz). heart activity documented by the technologist, 169 bpm. Evaluation of anatomy is still mildly limited by early gestation. Complete/detailed evaluation of anatomy was not performed/possible at this time. However, visualized anatomy on the provided images appears grossly within normal limits for gestation, including four-chamber heart, stomach, kidneys, urinary bladder, three-vessel cord, cord insertion, spine, cerebral lateral ventricles, cerebellum, cisterna magna. Followup/complete evaluation of anatomy still recommended, as clinically appropriate. No visible maternal adnexal abnormality. The urinary bladder was not completely evaluated/imaged at this time. US/US OB limited [id number] IMPRESSION: 1. Single living fetus, composite age: 17 weeks, 2 days. 2. Anterior placenta, no placenta previa. 3. Apparent subchorionic hematoma at the inferior margin of the placenta. See additional details and discussion above. 4. Normal amniotic fluid volume. 5. Other details discussed above.
--- NOTE | 2024-10-08 21:38 | W.ED.PREGNAN ---
HPI - General: Chief complaint: OB/Uterine Contractions Stated complaint: feeling fluid leaking 17 wk preg prone to pre term Time Seen by Provider: 10/08/24 21:26 History of Present Illness: Patient is a nontoxic 19-year-old female who is G3, P2 and states she is approximately 17 weeks based on dates and presents due to concern for some abdominal cramping discomfort and scant vaginal bleeding. She states for the last 1 week she has had some occasional spotting of blood from time to time noticed in her panty liner. She denies any significant vaginal bleeding. She denies any dysuria. No abnormal vaginal discharge. She has been getting routine care. She states that her previous pregnancies resulted in early delivery and was concerned about potential loss of amniotic fluid. Her blood type is O+. MD Complaint: abdominal pain and vaginal bleeding Severity: mild Quality: Cramping Associated symptoms: Reports abdominal pain Related Data Previous Rx's ?Medication ?Instructions ?Recorded multivitamin no.51-ferrous 1 cap PO BREAKFAST #90 caps 01/30/23 fumarate 106.5 mg-folic acid 1 mg capsule (-U) cephalexin 500 mg capsule 500 mg PO Q8H 5 days #15 caps 10/08/24 Allergies Allergy/AdvReac Type Severity Reaction Status Date / Time No Known Allergies Allergy Verified 10/08/24 21:23 Review of Systems General: Reports: 10 or more systems reviewed and unremarkable except in HPI and below Const: Denies: fever(s) or chills Card: Denies: chest pain Resp: Denies: dyspnea GI: Reports: abdominal pain : Denies: flank pain, difficulty voiding or urinary urgency PFS ED PFSH: Medical History (Updated 10/08/24 @ 23:48 by Ulisses Locke MD) Urinary urgency Urinary incontinence in female Surgical History History of tonsillectomy (~2015) Family History Grandfather CAD (coronary artery disease) Maternal Grandfather Diabetes Maternal garndfather Hypertension Maternal Grandfather Denies family history of Hyperlipidemia Cancer Stroke Social History Smoking and tobacco/nicotine status: never used tobacco/nicotine Alcohol intake: never Substance/Drug Use: unknown Adopted: No Physical Exam Const: COMMON NORMALS: no acute distress, average body habitus, alert and well nourished GENERAL APPEARANCE: cooperative ORIENTATION/CONSCIOUSNESS: Yes awake HENMT: COMMON NORMALS: normocephalic HEAD & SCALP: normocephalic Eye: COMMON NORMALS: conjunctivae normal CONJUNCTIVA: Yes conjunctivae normal Neck/C-Spine: GENERAL: Yes normal visual inspection Resp: COMMON NORMALS: normal respiratory effort, No retractions and No use of accessory muscles Cardio: COMMON NORMALS: regular rhythm and Peripheral pulses 2+ throughout RHYTHM: regular rhythm PERIPHERAL PULSES: Peripheral pulses 2+ throughout GI: COMMON NORMALS: Soft to palpation and non-tender PALPATION: Yes Soft to palpation Extremity: COMMON NORMALS: full ROM and no pedal edema Neuro: COMMON NORMALS: no focal motor deficits SENSORIUM/ORIENTATION: Yes alert Skin: COMMON NORMALS: no rashes or lesions noted GENERAL SKIN EXAM: no rashes or lesions noted Course Vital Signs: Vital signs: Vital Signs Temperature 98 F 10/08/24 21:18 Pulse Rate 90 10/08/24 23:07 Respiratory Rate 18 10/08/24 23:07 Blood Pressure 105/66 10/08/24 23:07 Pulse Oximetry 97 10/08/24 23:07 Oxygen Delivery Me thod Room Air 10/08/24 23:07 MDM - OB/Uterine Contractions Medical Decision Making Patient is a nontoxic 19-year-old female who presents to the ER for evaluation of scant vaginal bleeding and some abdominal cramping pain. Urinalysis has 6-10 white blood cells with trace bacteria. I will go ahead and place her on a few days of Keflex for this given her . Formal ultrasound was obtained which shows a live intrauterine measuring 17 weeks and 2 days. She does have a apparent subchorionic hematoma at the inferior margin of the placenta. She is O+. I will discharge her with recommendation to follow-up with her PCP and diagnosis of threatened miscarriage. Lab Data I reviewed the patient's lab results. Radiology Impressions Obstetrics Ultrasound 10/08/24 21:37 IMPRESSION: 1. Single living fetus, composite age: 17 weeks, 2 days. 2. Anterior placenta, no placenta previa. 3. Apparent subchorionic hematoma at the inferior margin of the placenta. See additional details and discussion above. 4. Normal amniotic fluid volume. 5. Other details discussed above. Laboratory Results Urine Color Yellow (Yellow) 10/08/24 22:50 Urine Appearance Clear (CLEAR) 10/08/24 22:50 Urine pH 6.5 (5-7) 10/08/24 22:50 Ur Specific Herscher 1.027 (1.005-1.030) 10/08/24 22:50 Urine Protein Negative (Negative) 10/08/24 22:50 Urine Glucose (UA) Trace (Normal) H 10/08/24 22:50 Urine Ketones Trace (Negative) 10/08/24 22:50 Urine Blood Negative (Negative) 10/08/24 22:50 Urine Nitrate Negative (Negative) 10/08/24 22:50 Urine Bilirubin Negative (Negative) 10/08/24 22:50 Urine Urobilinogen 1.0 mg/dL (Negative) 10/08/24 22:50 Ur Leukocyte Esterase Trace (Negative) A 10/08/24 22:50 Urine RBC 0-2 /hpf (0-2) 10/08/24 22:50 Urine WBC 6-10 /hpf (0-5) 10/08/24 22:50 Ur Squamous Epith Cells 0-5 /hpf (0-5) 10/08/24 22:50 Amorphous Sediment Not Reportable 10/08/24 22:50 Urine Bacteria Trace /hpf (NONE) 10/08/24 22:50 Hyaline Casts 1.65 /lpf 10/08/24 22:50 All radiology interpretation(s) finalized by discharge Discharge Plan Discharge Patient Disposition: Home Clinical Impression: Threatened miscarriage, Asymptomatic bacteriuria during Condition: Stable Prescriptions: New cephalexin 500 mg capsule 500 mg PO Q8H 5 Days Qty: 15 0RF No Action -U 106.5-1 mg Capsule 1 cap PO BREAKFAST Qty: 90 2RF Discharge Orders: Discharge ED (Routine); Ordered 10/08/24 Ordered By: Ulisses Locke Referrals: Curt Lemus MD [Primary Care Provider] - Discharge Diet: Usual diet Patient Instructions: Threatened Miscarriage (ED) Activity Restrictions/Additional Instructions: Follow-up with your teletypesetter monitor next week for recheck. Take medication as directed. Return to the ER for any concerns. Print Language: [place] Coding Level of Care Code ED Juke Box Mechanic for Beryl Pineda
[2024-10-08 22:59] LABS: Bilirubin Urine Negative (Negative); Blood Urine Negative (Negative); Glucose Urine UA Trace (Normal); Ketones Urine Trace (Negative); Leukocyte Esterase Urine Trace (Negative); Nitrate Urine Negative (Negative); Protein Urine Negative (Negative); Specific Gravity, Urine 1.027 (1.005-1.030); Urine Appearance Clear (CLEAR); Urine Color Yellow (Yellow); pH Urine 6.5 (5-7)
[2024-10-08 23:04] LABS: Add Urine Microscopic? YES; Bacteria Urine Trace /hpf; Hyaline Casts Urine 1.65 /lpf; RBC Urine 0-2 /hpf (0-2); Squamous Epithelial Cell Urine 0-5 /hpf (0-5)
[2024-10-08 23:07] VITALS: BP 105/66; PULSE 90; RESP 18; O2SAT 97
[2024-10-09 00:16] VITALS: BP 112/81; PULSE 98; RESP 16; O2SAT 98
== END 2024-10-08 23:59 | disposition home or self-care (01) ==
PROVIDERS: Emergency Provider Student in an Organized Health Care Education/Training Program; PCP Family Medicine
DX: O20.0 Threatened abortion (principal); Z3A.17 17 weeks gestation of pregnancy; R82.71 Bacteriuria
CPT/HCPCS: 76815; 81001; 99284

== ENCOUNTER 2024-11-25 21:45 | Outpatient (CLI) | payer BC, MEDICAID, SELFPAY ==
[2024-11-25 21:45] VITALS: BMI 24.0
[2024-11-25 22:10] LABS: Nitrazine Paper, PH Negative
[2024-11-25 22:11] VITALS: BP 100/67; PULSE 96
[2024-11-25 22:26] VITALS: BP 104/68; PULSE 95
[2024-11-25 22:35] VITALS: BP 104/69; PULSE 95; RESP 17; TEMP 36.7; O2SAT 97
[2024-11-25 22:37] VITALS: PULSE 87; O2SAT 97
== END 2024-11-25 22:40 | disposition home or self-care (01) ==
LOC: OPOB 21:52 → OBGYN 21:53
PROVIDERS: Absent Provider Family Medicine; PCP Family Medicine; Visit Provider Family Medicine
DX: O26.899 Other specified pregnancy related conditions, unspecified trimester (principal); Z3A.00 Weeks of gestation of pregnancy not specified; N89.8 Other specified noninflammatory disorders of vagina
CPT/HCPCS: 83986; 99211

== ENCOUNTER 2024-12-01 17:45 | Outpatient (CLI) | payer BC, MEDICAID, SELFPAY ==
[2024-12-01 17:54] VITALS: BP 107/63; PULSE 94
[2024-12-01 17:55] VITALS: PULSE 95; O2SAT 97
[2024-12-01 18:00] VITALS: PULSE 104; O2SAT 97
[2024-12-01 18:05] VITALS: PULSE 103; O2SAT 97
[2024-12-01 18:17] VITALS: BP 103/67; PULSE 101
[2024-12-01 18:21] LABS: Basophils % 0.7 %; Eosinophils # 0.2 10^3/uL (0.0-0.8); Eosinophils % 3.8 %; Hematocrit 34.9 % (36-47); Lymphocytes # 1.4 10^3/uL (1.5-6.5); Lymphocytes % 24.8 %; Mean Corpuscular HGB Conc 31.8 g/dL (30-55); Mean Corpuscular Hemoglobin 26.6 pg (27-33); Mean Corpuscular Volume 83.5 fl (85-98); Mean Platelet Volume 10.6 fL (7.4-10.4); Monocytes # 0.5 10^3/uL (0.2-0.9); Monocytes % 8.1 %; Neutrophils % 62.1 %; Nucleated Red Blood Cells % 0 %; Platelet Count 201 10^3/cmm (157-399); Red Blood Count 4.18 10^6/uL (3.85-5.65); Red Cell Distribution Width 13.2 % (12.1-15.1)
[2024-12-01 18:33] LABS: Bilirubin Urine Negative (Negative); Blood Urine Negative (Negative); Glucose Urine UA Negative (Normal); Ketones Urine Trace (Negative); Leukocyte Esterase Urine 1+ (Negative); Nitrate Urine Negative (Negative); Protein Urine Trace (Negative); Specific Gravity, Urine 1.023 (1.005-1.030); Urine Appearance Clear (CLEAR); Urine Color Yellow (Yellow); pH Urine 6.5 (5-7)
[2024-12-01 18:37] VITALS: BP 114/77; PULSE 108
[2024-12-01 18:38] LABS: Bacteria Urine 1+ /hpf; Hyaline Casts Urine 6.17 /lpf; RBC Urine 0-2 /hpf (0-2); Squamous Epithelial Cell Urine 0-5 /hpf (0-5)
[2024-12-01 18:38] LABS: Alanine Aminotransferase 7 U/L (0-33); Albumin Level 3.8 g/dL (3.5-5.2); Alkaline Phosphatase 79 U/L (35-105); Anion Gap 16.8 (5-19); Aspartate Amino Transferase 15 U/L (0-32); Blood Urea Nitrogen 6 mg/dL (6-20); Calcium 8.5 mg/dL (8.5-10.5); Carbon Dioxide 21 mmol/L (22-29); Chloride 104 mmol/L (98-107); Creatinine Clr Calc Pharmacy 184.4684; Globulin 3.1 g/dL (1.3-4.6); Glomerular Filtration Rate 203.5 mL/min (90-130); Glucose 83 mg/dL (65-115); Osmolality Calculated 283 mOsm/kg (285-295); Potassium 3.8 mmol/L (3.5-5.1); Sodium 138 mmol/L (136-145); Total Bilirubin 0.2 mg/dL (0.15-1.2); Total Protein 6.9 g/dL (6.6-8.7)
== END 2024-12-01 18:57 | disposition home or self-care (01) ==
LOC: OPOB 17:48 → OBGYN 17:49
PROVIDERS: PCP Family Medicine; Visit Provider Family Medicine
DX: O26.899 Other specified pregnancy related conditions, unspecified trimester (principal); Z3A.00 Weeks of gestation of pregnancy not specified; R55 Syncope and collapse
CPT/HCPCS: 36415; 59025; 80053; 81001; 85025; 99211

== ENCOUNTER 2025-01-21 09:30 | Outpatient (CLI) | payer BC, MEDICAID, SELFPAY ==
[2025-01-21] VITALS (26 sets, daily range): BP systolic 112–118; BP diastolic 66–72; PULSE 108–137; O2SAT 95–100; BMI 25.4
[2025-01-21 10:04] LABS: Glucose Urine UA Negative (Normal); Nitrate Urine Negative (Negative); Specific Gravity, Urine 1.021 (1.005-1.030)
[2025-01-21 10:47] LABS: Hematocrit 28.1 % (36-47); Hemoglobin 9.00 g/dL (12.4-14.8); Mean Corpuscular HGB Conc 32.0 g/dL (30-55); Mean Corpuscular Hemoglobin 24.9 pg (27-33); Mean Corpuscular Volume 77.8 fl (85-98); Nucleated Red Blood Cells % 0 %; Platelet Count 169 10^3/cmm (157-399); Red Blood Count 3.61 10^6/uL (3.85-5.65); White Blood Count 7.78 10^3/uL (4.5-13.0)
[2025-01-21 11:06] LABS: Alanine Aminotransferase 8 U/L (0-33); Albumin Level 3.5 g/dL (3.5-5.2); Alkaline Phosphatase 110 U/L (35-105); Anion Gap 14.4 (5-19); Aspartate Amino Transferase 21 U/L (0-32); Blood Urea Nitrogen 6 mg/dL (6-20); Calcium 8.4 mg/dL (8.5-10.5); Carbon Dioxide 20 mmol/L (22-29); Chloride 106 mmol/L (98-107); Creatinine Clr Calc Pharmacy 188.3246; Globulin 2.8 g/dL (1.3-4.6); Glucose 122 mg/dL (65-115); Osmolality Calculated 283 mOsm/kg (285-295); Potassium 3.4 mmol/L (3.5-5.1); Sodium 137 mmol/L (136-145); Total Protein 6.3 g/dL (6.6-8.7)
== END 2025-01-21 11:36 | disposition home or self-care (01) ==
LOC: OPOB 09:36 → OBGYN 09:37
PROVIDERS: PCP Family Medicine; Visit Provider Family Medicine
DX: O36.8190 Decreased fetal movements, unspecified trimester, not applicable or unspecified (principal); Z3A.00 Weeks of gestation of pregnancy not specified; R25.2 Cramp and spasm; M54.9 Dorsalgia, unspecified
CPT/HCPCS: 59025; 80053; 81001; 85025; 87086; 99211

== ENCOUNTER 2025-02-06 00:47 | Outpatient (CLI) | payer BC, MEDICAID, SELFPAY ==
[2025-02-06] VITALS (7 sets, daily range): BP systolic 108–112; BP diastolic 71–77; PULSE 78–90; RESP 18; TEMP 36.1; O2SAT 98; BMI 24.9
== END 2025-02-06 02:19 | disposition home or self-care (01) ==
LOC: OPOB 00:48 → OBGYN 00:48
PROVIDERS: PCP Family Medicine; Visit Provider Family Medicine
DX: O26.899 Other specified pregnancy related conditions, unspecified trimester (principal); Z3A.00 Weeks of gestation of pregnancy not specified; N89.8 Other specified noninflammatory disorders of vagina; R25.2 Cramp and spasm; R42 Dizziness and giddiness
CPT/HCPCS: 59025; 83986; 84112; 99211

== ENCOUNTER 2025-02-17 11:08 | Outpatient (CLI) | payer BC, MEDICAID, SELFPAY ==
[2025-02-17 11:06] VITALS: BMI 24.6
[2025-02-17 11:20] VITALS: BP 105/79; PULSE 96
[2025-02-17 11:36] VITALS: BP 107/80; PULSE 95
[2025-02-17 11:51] VITALS: BP 108/71; PULSE 92
[2025-02-17 11:52] LABS: Glucose Urine UA Negative (Normal); Nitrate Urine Negative (Negative); Specific Gravity, Urine 1.017 (1.005-1.030)
[2025-02-17 12:08] VITALS: BP 104/72; PULSE 90
[2025-02-17 12:22] VITALS: BP 105/73; PULSE 85
[2025-02-17 12:22] LABS: UA Slide Review UA Slide Review Perf
== END 2025-02-17 12:35 | disposition home or self-care (01) ==
LOC: OPOB 11:09 → OBGYN 11:12
PROVIDERS: Absent Provider Family Medicine; PCP Family Medicine; Visit Provider Family Medicine
DX: O26.899 Other specified pregnancy related conditions, unspecified trimester (principal); Z3A.00 Weeks of gestation of pregnancy not specified; R25.2 Cramp and spasm; R82.998 Other abnormal findings in urine
CPT/HCPCS: 59025; 81001; 87086; 99211

== ENCOUNTER 2025-03-03 01:04 | Outpatient (CLI) | payer BC, MEDICAID, SELFPAY ==
[2025-03-03] VITALS (31 sets, daily range): BP systolic 100–108; BP diastolic 56–71; PULSE 79–123; RESP 16; TEMP 36.1; O2SAT 96–99
[2025-03-03 01:36] LABS: Glucose Urine UA Negative (Normal); Nitrate Urine Negative (Negative); Specific Gravity, Urine 1.026 (1.005-1.030)
[2025-03-03 01:58] LABS: UA Slide Review UA Slide Review Perf
[2025-03-03] MEDS: cefTRIAXone 1,000 MG, lidocaine 1% 2.1 ML in SYRINGE 1 EACH 2.1 MG IM (03:04)
== END 2025-03-03 03:16 | disposition home or self-care (01) ==
LOC: OPOB 01:05 → OBGYN 01:10
PROVIDERS: PCP Family Medicine; Visit Provider Family Medicine
DX: O26.899 Other specified pregnancy related conditions, unspecified trimester (principal); Z3A.00 Weeks of gestation of pregnancy not specified; R31.9 Hematuria, unspecified; R52 Pain, unspecified
CPT/HCPCS: 59025; 81001; 87086; 96372; 99211; J0696; J9999